=== PATIENT | female | born 1970 | race Caucasian/White ===

== ENCOUNTER 2018-06-12 04:33 | Observation (INO) | payer OTHER, MEDICAID ==
[~2018-06-12] VITALS: Ht 162.6 cm; Wt 90.7 kg
[2018-06-12] MEDS ORDERED: LOSA25TA5 PO (04:48)
[2018-06-12 06:33] LABS: MICROSCOPIC AUTO
[2018-06-12 06:34] LABS: CULTURE INDICATED? NO
[2018-06-12 07:12] VITALS: BP 104/68
[2018-06-12] MEDS ORDERED: ENALAPRILAT 1.25 MG/ML, 2ML IVPush PRN (13:00)
[2018-06-12] MEDS ORDERED: KETOROLAC 30 MG/1 ML IV PRN (13:00)
[2018-06-12 13:36] VITALS: BP 135/83
[2018-06-12] MEDS: ACETAMINOPHEN 325 MG TABLET PO PRN ×2 (13:44→21:10)
[2018-06-12 21:00] VITALS: BP 127/85
[2018-06-13 02:38] VITALS: BP 103/69
[2018-06-13 07:05] VITALS: BP 102/69
[2018-06-13] MEDS ORDERED: LOSARTAN 25MG TABLET PO SCH (09:00)
[2018-06-13 09:10] LABS: ANION GAP 7 mmol/L (5-15); CALCIUM 8.5 mg/dL (8.5-10.1); CHLORIDE 111 mmol/L (98-107); CREATININE 1.06 mg/dL (0.55-1.02)
[2018-06-13] MEDS: ACETAMINOPHEN 325 MG TABLET PO PRN (10:37)
[2018-06-13 16:01] LABS: OCCULT BLOOD POSITIVE (NEGATIVE)
== END 2018-06-13 11:55 | disposition home or self-care (01) ==
LOC: ED 06:25 → EDIP 06:26 → INTOOBSV 06:26 → 3NW 06:50
PROVIDERS: ADMIT Hospitalist; ATTEND Hospitalist
DX: N20.0 Calculus of kidney (principal); F19.20 Other psychoactive substance dependence, uncomplicated; I11.0 Hypertensive heart disease with heart failure; I25.10 Atherosclerotic heart disease of native coronary artery without angina pectoris; I50.9 Heart failure, unspecified; J44.9 Chronic obstructive pulmonary disease, unspecified; Z85.72 Personal history of non-Hodgkin lymphomas; Z87.442 Personal history of urinary calculi; Z86.14 Personal history of Methicillin resistant Staphylococcus aureus infection
CPT/HCPCS: 36415; 80048; 81001; 82272; 99285; G0378